=== PATIENT | female | born 1965 | race Caucasian/White ===

== ENCOUNTER 2019-07-22 13:03 | Outpatient (CLI) | payer OTHER, SELFPAY ==
--- NOTE | ~2019-07-22 | MM_ITS ---
EXAMINATION: MM screening [facility] BI w cecilia HISTORY: Screening mammogram TECHNIQUE: Craniocaudal and mediolateral oblique 3-D tomosynthesis images were obtained and synthetic 2-D images were generated. CAD analysis was submitted and interpreted. COMPARISON: 06/03/2018, 04/23/2017 bilateral digital screening mammogram examinations BREAST PARENCHYMAL COMPOSITION: There are scattered areas of fibroglandular density.. FINDINGS: There is no evidence of suspicious mass, calcification, or architectural distortion to sugg est malignancy in either breast. There has been no suspicious interval change. IMPRESSION: 1. No mammographic evidence of malignancy. 2. Recommend routine screening mammography in one year. BI-RADS Category 1: Negative Reviewed, dictated and finalized at location A. DRILL OPERATOR
== END 2019-07-22 13:04 | disposition home or self-care (01) ==
LOC: ANHIMG 13:06
PROVIDERS: PCP Family Medicine; Visit Provider Obstetrics & Gynecology
DX: Z12.31 Encounter for screening mammogram for malignant neoplasm of breast (principal)
CPT/HCPCS: 77063; 77067

== ENCOUNTER 2020-08-17 09:21 | Outpatient (CLI) | payer OTHER, SELFPAY ==
--- NOTE | ~2020-08-17 | MM_ITS ---
EXAMINATION: MM screening [facility] BI w cecilia HISTORY: Screening mammogram TECHNIQUE: Craniocaudal and mediolateral oblique 3-D tomosynthesis images were obtained and synthetic 2-D images were generated. CAD analysis was submitted and interpreted. COMPARISON: 07/22/2019, 06/03/2018, 04/23/2017 BREAST PARENCHYMAL COMPOSITION: There are scattered areas of fibroglandular density. FINDINGS: There is no evidence of suspicious mass, calcification, or architectural distortion to sugg est malignancy in either breast. There has been no suspicious interval change. IMPRESSION: 1. No mammographic evidence of malignancy. 2. Recommend routine screening mammography in one year. BI-RADS Category 1: Negative Reviewed, dictated and finalized at location A.
== END 2020-08-17 09:22 | disposition home or self-care (01) ==
LOC: ANHIMG 09:28
PROVIDERS: PCP Family Medicine; Visit Provider Obstetrics & Gynecology
DX: Z12.31 Encounter for screening mammogram for malignant neoplasm of breast (principal)
CPT/HCPCS: 77063; 77067

== ENCOUNTER 2021-09-05 10:26 | Outpatient (CLI) | payer OTHER, SELFPAY ==
--- NOTE | ~2021-09-05 | MM_ITS ---
EXAMINATION: MM screening [facility] BI w cecilia HISTORY: Screening mammogram TECHNIQUE: Craniocaudal and mediolateral oblique 3-D tomosynthesis images were obtained and synthetic 2-D images were generated. CAD analysis was submitted and interpreted. COMPARISON: 08/17/2020, 07/2019, 06/03/2018 bilateral screening mammogram examinations BREAST PARENCHYMAL COMPOSITION: There are scattered areas of fibroglandular density. FINDINGS: There is no evidence of suspicious mass, calcification, or architectural distortion to sugg est malignancy in either breast. There has been no suspicious interval change. IMPRESSION: 1. No mammographic evidence of malignancy. 2. Recommend routine screening mammography in one year. BI-RADS Category 1: Negative Reviewed, dictated and finalized at location A.
== END 2021-09-05 10:27 | disposition home or self-care (01) ==
PROVIDERS: PCP Family Medicine; Visit Provider Nurse Practitioner Obstetrics & Gynecology
DX: Z12.31 Encounter for screening mammogram for malignant neoplasm of breast (principal)
CPT/HCPCS: 77063; 77067

== ENCOUNTER 2022-09-20 09:45 | Outpatient (CLI) | payer OTHER, SELFPAY ==
--- NOTE | ~2022-09-20 | MM_ITS ---
EXAMINATION: MM screening [facility] BI w cecilia HISTORY: Screening mammogram TECHNIQUE: Craniocaudal and mediolateral oblique 3-D tomosynthesis images were obtained and synthetic 2-D images were generated. CAD analysis was submitted and interpreted. COMPARISON: 09/05/2021, 08/17/2020, 07/22/2019 BREAST PARENCHYMAL COMPOSITION: There are scattered areas of fibroglandular density. FINDINGS: No suspicious mass, calcification, or architectural distortion are identified in either katty ast to suggest malignancy. There has been no suspicious interval change. IMPRESSION: 1. No mammographic evidence of malignancy. 2. Recommend routine screening mammography in one year. BI-RADS Category 1: Negative Reviewed, dictated and finalized at location A.
== END 2022-09-20 09:46 | disposition home or self-care (01) ==
LOC: ANHIMG 09:47
PROVIDERS: PCP Family Medicine; Visit Provider Nurse Practitioner Obstetrics & Gynecology
DX: Z12.31 Encounter for screening mammogram for malignant neoplasm of breast (principal)
CPT/HCPCS: 77063; 77067

== ENCOUNTER 2023-11-06 08:55 | Outpatient (CLI) | payer OTHER, SELFPAY ==
--- NOTE | ~2023-11-06 | MM_ITS ---
EXAMINATION: MM screening [facility] BI w cecilia HISTORY: Screening TECHNIQUE: Craniocaudal and mediolateral oblique 3-D tomosynthesis images were obtained and synthetic 2-D images were generated. CAD analysis was submitted and interpreted. COMPARISON: Comparison to multiple prior studies sequentially, with oldest reviewed study dated 09/2016. BREAST PARENCHYMAL COMPOSITION: Not dense: There are scattered areas of fibroglandular density. FINDINGS: There is no evidence of suspicious mass, calcification, or architectural distortion to sugg est malignancy in either breast. There has been no suspicious interval change. IMPRESSION: 1. No mammographic evidence of malignancy. 2. Recommend routine screening mammography in one year. BI-RADS Category 1: Negative Reviewed, dictated and finalized at location B.
== END 2023-11-06 08:56 | disposition home or self-care (01) ==
PROVIDERS: PCP Family Medicine; Visit Provider Nurse Practitioner Obstetrics & Gynecology
DX: Z12.31 Encounter for screening mammogram for malignant neoplasm of breast (principal)
CPT/HCPCS: 77063; 77067

== ENCOUNTER 2024-12-22 08:45 | Outpatient (CLI) | payer OTHER, SELFPAY ==
--- NOTE | ~2024-12-22 | MM_ITS ---
EXAMINATION: MM screening [facility] BI w cecilia HISTORY: Screening TECHNIQUE: Craniocaudal and mediolateral oblique 3-D tomosynthesis images were obtained and synthetic 2-D images were generated. CAD analysis was submitted and interpreted. COMPARISON: Comparison to multiple prior studies sequentially, with oldest reviewed study dated 2019. BREAST PARENCHYMAL COMPOSITION: There are scattered areas of fibroglandular density. FINDINGS: There is no evidence of suspicious mass, calcification, or architectural distortion to sug gest malignancy in either breast. IMPRESSION: 1. No mammographic evidence of malignancy. 2. Recommend routine screening mammography in one year. BI-RADS Category 1: Negative Reviewed, dictated and finalized at location B.
--- OUTSIDE RECORDS SUMMARY | 2024-12-22 08:52 | XMS_ITS | Clinical Summary ---
Author Organization [facility] Address [address] [place] [address] Care Team Providers Care Sweat Band Separator Name Role Phone Unavailable Primary Care Provider Unavailabl e Allergies Active Allergy Reactions Criticality Noted Date Comments Penicillins Shortness of Breath High 07/06/2021 Medications Multiple Vitamins-Minera ls (MULTIVITAMIN ADULT, MINERALS,) Tab daily. Activ e Probiotic Product (PROBIOTIC-10 OR) Probiotic Active calcium carbonate-vitam in D 600-400 MG-UNIT Tab every 12 (twelve) hours. Active glucosamine-cho ndroitin 500-400 MG Cap Take 1 capsule by mouth daily. Active methocarbamol 750 MG TabIndications: Neck pain,Chronic upper back pain Take 1-2 tablets (750-1,500 mg total) by mouth 3 (three) times daily. 90 tablet 2 Active methylPREDNISol one, DIONISIO, 4 MG tabletIndicatio ns:Neck pain,Chronic upper back pain Follow package directions 1 each 2 Active diazePAM 5 MG tabletIndicatio ns:Claustrophob ia Take one tablet 1 hour prior to test. May repeat one hour later. Must have a parts driver.Do not drive on this medication. 2 tablet 2 Active Active Problems Problem Noted Date Diagnosed Date Other chronic pain 07/06/2021 Polyarthralgia 07/06/2021 Family history of rheumatoid arthritis 2 Neck pain 07/06/2021 Chronic upper back pain 07/06/2021 Adult BMI 27.0-27.9 kg/sq m 07/06/2021 Abnormal MRI, lumbar spine 07/06/2021 Chronic midline low back pain with bilateral sci atica 07/06/2021 Encounters Date Type Department Care Team Description 10/26/2024 Telephone [facility] Family [facility] Internal Medicine - [address] [id number] Jazmin AlfordKELLY Leg Pain (Per After Hours call service 10/23/24: Patient Is Calling To Make an Appointment. Because She Has Varicose Veins and They Are Puffy and THROBBING. Please Return Phone Call.) from Last 3 Months Family History Medical History Relation Comments Drug Abuse Brother 1 Chrons Brother 2 Alcohol Abuse Father Cancer Maternal Aunt Colon Cancer Maternal Grandfather Cancer Maternal Uncle Arthritis Mother Cancer Mother lung Heart Disease Mother Diabetes Paternal Grandfather Relation Status Comments Brother 1 Brother 2 Alive Father Maternal Aunt Maternal Grandfather Maternal Uncle Mother (Age 74) Paternal Grandfather Social History Tobacco Use Types Packs/Day Years Used Date Smoking Tobacco: Never Smokeless Tobacco: Never Alcohol Use Standard Drinks/Week Comments Yes 0 (1 standard drink = 0.6 oz pur e alcohol) rare PHQ-2 Answer Date Recorded PHQ-2 Score - If the patient scores above 3, please move on to questions 3-9 2 07/06/2021 Comments Unknown Sex and Gender Information Value Date Recorded Sex Assigned at Not on file Legal Sex Female 10:35 AM ACCOUNT MANAGER RELIEF Gender Identity Not on file Sexual Orientation Not on file Last Filed Vital Signs Vital Sign Reading Time Taken Comments Blood Pressure 136/71 07/06/2021 11:37 AM ACCOUNT MANAGER RELIEF Pulse 57 07/06/2021 11:37 AM ACCOUNT MANAGER RELIEF Temperature 36.5 C (97.7 F) 07/06/2021 11:37 AM ACCOUNT MANAGER RELIEF Respiratory Rate 16 07/06/2021 11:37 AM ACCOUNT MANAGER RELIEF Oxygen Saturation 100% 07/06/2021 11:37 AM ACCOUNT MANAGER RELIEF Inhaled Oxygen Concentration - - Weight 68.9 kg (152 lb) 07/06/2021 11:37 AM ACCOUNT MANAGER RELIEF Height 157.5 cm (5' 2) 07/06/2021 11:37 AM ACCOUNT MANAGER RELIEF Body Mass Index 27.8 07/06/2021 11:37 AM ACCOUNT MANAGER RELIEF Plan of Treatment Health Maintenance Due Date Last Done Comments Cervical Cancer Screening Pa p Smear (Age 30 to 64) Every 3 Years 1967 Colorectal Cancer Screening Colonoscopy (10 Years) 1967 Annual Physical 12/23/1970 Hepatitis C 12/23/1985 DTaP, Tdap and Td Vaccines ( 1 - Tdap) 12/23/1986 Hepatitis B Vaccines (1 of 3 - 19+ 3-dose series) 12/23/1986 Cervical Cancer Screening Pa p with HPV Testing (Age 30 to 64) Every 5 Years 12/23/1997 Cervical Cancer Screening wi th HPV 12/23/1997 Mammogram Screening 2007 Pneumococcal Vaccine: 50+ Years (1 of 1 - PCV) 12/23/2017 Zoster Vaccines (1 of 2) 12/23/2017 COVID-19 Vaccine (3 - 2023-2 5 season) 2024 01/16/2021, 12/26/2020 Meningococcal B Vaccine Aged Out No l onger eligible based on patient's age to complete this topic Meningococcal Vaccine Aged Out No edie gina eligible based on patient's age to complete this topic RSV Immunizations Under 20 Months Aged Out No longer eligible b ased on patient's age to complete this topic
--- OUTSIDE RECORDS SUMMARY | 2024-12-22 08:52 | XMS_ITS | Continuity of Care Document ---
Author Organization [facility] Address [address] [place] [address] Phone Care Team Providers Care Store Leader Name Role Phone Chuckie Valdes DO Unavailable Unavailable Allergies, Adverse Reactions, Alerts Substance Reaction Status Criticality No Known allergies Procedures Procedure Date Urine test Smear, stain & interpret, wet 5 Preventive checkup, new, 40-64 yrs Collect venous blood, venipuncture Specimen handling/transport, office to l ab Not Seen - Patient Left Etc Advance Directives Directive Yes / No Effective Date File Name No Information Encounters Encounter Description Practice Location Reason(s) For Visit Diagnoses Date Provider Providers Copied on Encounter [facility] Dasha , [address], [place], [place], [id number] , [place] tel: [phone] [facility] [place] No Information 6 Keisha Noguear. [address], [place], [place], [id number], [place]. tel:[phone] [facility] , [address], [place], [place], [id number] , [place] tel: [phone] [facility] [place] No Information 6 Kathie Gonzalez. [address] [facility], [id number] , [place], [place], [id number], [place]. tel:[phone] Preventive checkup, new, 40-64 yrs [facility] , [address], [place], [place], [id number] , tel: [phone] [facility] Rita [place] Preventive exam (chief complaint) Routine medical examVaginal dischargeRoutine gynecological examination 5 Kathie Gonzalez. [address] [facility] [facility], [id number] , [place], [place], [id number], . tel:[phone] [facility] Rita , [address], [place], [place], [id number] , tel: [phone] [facility] Richielakeishasantos [place] Establish Care (chief complaint)s pots to cheek (chief complaint) No Information 5 Sandraparish Su. [address] [place] [address], [id number] , [place], [place], [id number], . tel:[phone] Family History Family Member Type Diagnosis Age At Onset Mother Problem (finding) osteoporosis Mother Problem (finding) valve replaced 19yo Immunizations Vaccine Date Status Comments Td (adult) preservative free administered Source: Other Registry Payers Payer name Insurance type Covered democrat ID Authoriza tion(s) No Information Social History Type Description Quantity Date Captured Comments Alcohol Use Details Unknown Caffeine Use Details Unknown Tobacco Use Status No Information Smoking Status No Information Sex Female Chief Complaint And Reason For Visit No Information Reason For Referral Reason For Referral No Information Plan Of Treatment Date Type Action Status Goal Lifestyle education regardin g diet completed History Of Present Illness Encounter Date Complaint History Of Prese nt Illness Preventive exam Currently pregna nt: no. : 3. Parity: Term: 3. Livin. Patient is not contemplating . The patient states she uses vasectomy for control. Last LMP was 11/27/2014. Her menses is regular. Negative for: breast discharge, breast lump(s) and breast pain. Diet healthy. She does take multivitamins occasionally.The patient states her exercise level is sedentary. The patient does not use tobacco. Additional information: pt is new to our clinic. has not had a physical exam in years. pt has had some clear discharge and some itching, no burning. monistat 7days helped but symptoms returned 1 wk later. spots to cheek Establish Care Patient was not seen due to confusion with the appointment reason. We are not able to perform biometric labs and we are able to due the physical part of it. The patient only wanted the labs. Functional Status Date Functional Assessmen t No Information Instructions Date Instruction Additional Infor mary pt had cholesterol a nd A1c done at outside labs results today- nrl LDL at 120 and a1c at 5.6BMP done here todaypt would like screening for STDs- HIV,hep B, RPR, gc/ctupt in office due to spotting and pt concern- neg we discussed risk/benefits of mammography btwn 40-50yrs old, she decided to wait Related to Routine medical exam wet prep neg today Related to Va ginal discharge Lifestyle education regarding di et Prescribed activity/exercise edu cation Assessments Type Assessment Date No Information Patient Care Teams Name Effective Dates (start - stop) Status Members No Information
== END 2024-12-22 08:46 | disposition home or self-care (01) ==
PROVIDERS: Visit Provider Student in an Organized Health Care Education/Training Program
DX: Z12.31 Encounter for screening mammogram for malignant neoplasm of breast (principal)
CPT/HCPCS: 77063; 77067